=== PATIENT | female | born 1965 | race African-American/Black ===

== ENCOUNTER → 2016-12-09 | Outpatient (CLI) | payer BC ==
[2016-06-26 15:03] VITALS: BP 177/69
[2016-12-09 16:15] LABS: BASOPHILS # (AUTO) 0.1 X10^3/uL (0.0-0.1); EOSINOPHILS # (AUTO) 0.1 x10^3/uL (0.0-0.2); EOSINOPHILS % (AUTO) 1.7 % (0.9-2.9); HEMATOCRIT 37.7 % (36.0-47.0); HEMOGLOBIN 11.9 g/dL (12.0-16.0); LYMPHOCYTES # (AUTO) 2.9 X10^3/uL (1.3-2.9); LYMPHOCYTES % (AUTO) 46.9 % (21.0-51.0); MEAN CORPUSCULAR HEMOGLOBIN 23.9 pg (27.0-34.0); MEAN CORPUSCULAR HGB CONC 31.6 g/dL (33.0-35.0); MEAN CORPUSCULAR VOLUME 75.6 fL (80.0-100.0); MEAN PLATELET VOLUME 9.5 fL (7.4-11.0); MONOCYTES # (AUTO) 0.7 x10^3/uL (0.3-0.8); MONOCYTES % (AUTO) 10.8 % (0.0-13.0); NEUTROPHILS # (AUTO) 2.5 x10^3/uL (2.2-4.8); NEUTROPHILS % (AUTO) 39.6 % (42.0-75.0); PLATELET COUNT 218 X10^3/uL (150.0-450.0); RED BLOOD COUNT 4.99 X10^6/uL (3.5-5.4); RED CELL DISTRIBUTION WIDTH 16.2 % (11.6-16.5); WHITE BLOOD COUNT 6.2 X10^3/uL (3.6-10.0)
[2016-12-09 16:22] LABS: HEMOGLOBIN A1C 11.2 % (4.5-6.2)
[2016-12-09 16:31] LABS: ALANINE AMINOTRANSFERASE 34 Units/L (12-78); ALBUMIN 3.3 g/dL (3.4-5.0); ALKALINE PHOSPHATASE 120 Units/L (46-116); ASPARTATE AMINO TRANSFERASE 28 Units/L (15-37); BLOOD UREA NITROGEN 10 mg/dL (7-18); CALCIUM 8.8 mg/dL (8.5-10.1); CARBON DIOXIDE 29.3 mmol/L (21-32); CHLORIDE 106 mmol/L (98-107); CHOL/HDL RATIO 4.3 (0.0-5.0); CHOLESTEROL 164 mg/dL (0-200); COR CA(FOR HYPOALB) 9.4 mg/dL (8.5-10.1); CREATININE 0.67 mg/dL (0.55-1.02); GLUCOSE 89 mg/dL (65-99); HDL CHOLESTEROL 38 mg/dL (40-60); SODIUM 143 mmol/L (136-145); TRIGLYCERIDES 25 mg/dL (0-150); eGFR BLACK RACES > 60 (>60); eGFR NON BLACK RACES > 60 (>60)
[2016-12-09 16:50] LABS: CREATININE,URINE 297.72 mg/dL (29-226)
[2016-12-09 17:05] LABS: ERYTHROCYTE SEDIMENTATION RATE 34 MM/HOUR (0-20); HYPOCHROMASIA 1+; PLATELET MORPHOLOGY COMMENT NORMAL (NORMAL)
[2016-12-09 17:11] LABS: MICROALBUMIN,URINE 202.4 mg/L
[2016-12-09 17:24] LABS: TRANSFERRIN 313 mg/dL (202-364)
[2016-12-12 06:16] LABS: ANTI-NUCLEAR ANTIBODY TEST None Detected (None Detected)
== END ==
LOC: LAB 15:40
PROVIDERS: ATTEND Nurse Practitioner Family
DX: Z86.2 Personal history of diseases of the blood and blood-forming organs and certain disorders involving the immune mechanism (principal); R76.8 Other specified abnormal immunological findings in serum; I10 Essential (primary) hypertension; E11.65 Type 2 diabetes mellitus with hyperglycemia
CPT/HCPCS: 36415; 80053; 80061; 82043; 82607; 82728; 82746; 83036; 84466; 85025; 85652; 86140; 86308

== ENCOUNTER → 2016-12-10 | Outpatient (CLI) | payer BC ==
[2016-06-26 15:03] VITALS: BP 177/69
--- NOTE | 2016-12-10 12:07 | RAD ---
HISTORY: Low back pain Study: Lumbar spine three view Comparison: June 26, 2016 Findings: Normal alignment of the lumbar spine is maintained. The posterior elements appear unremarkable in t heir appearance. The disk space height is maintained without significant endplate sclerosis. No ev idence for acute fracture can be identified. The SI joints are normal. IMPRESSION: 1. Negative exam. Reported By:
--- NOTE | 2016-12-10 12:08 | RAD ---
HISTORY: Chronic back pain Study: T-spine three view Comparison: None Findings: The alignment is normal. The vertebral bodies are of average height. The disc spaces are preserved. The pedicles are intact. The paraspinous soft tissues are normal. Diffuse spondylosis is present in the mid and lower thoracic spine. IMPRESSION: Diffuse spondylosis Reported By:
--- NOTE | 2016-12-10 12:09 | RAD ---
HISTORY: Chronic neck pain Study: Cervical spine three views Comparison: November 22, 2014 Findings: The prevertebral soft tissues are normal. The alignment is normal. The vertebral bodies are of avera ge height. The disc spaces are normal with the exception of narrowing at C5-6. The posterior element s are intact. The joints are normal. IMPRESSION: Disc space narrowing C5-6 Reported By:
== END | disposition home or self-care (01) | DRG 552 ==
LOC: LAB 11:15
PROVIDERS: ATTEND Psychiatry & Neurology Neurology
DX: M54.2 Cervicalgia (principal); M54.89 Other dorsalgia; M47.894 Other spondylosis, thoracic region
CPT/HCPCS: 72040; 72072; 72100

== ENCOUNTER → 2017-04-04 | Outpatient (CLI) | payer BC ==
[2016-06-26 15:03] VITALS: BP 177/69
--- NOTE | 2017-04-04 13:26 | US ---
History: Dyspareunia. Exam: Pelvic ultrasound Comparison: Pelvic ultrasound dated February 14, 2012. Technique: Multiple grayscale and color flow Doppler images of the pelvis were obtained. Findings: The uterus measures 5.9 x 4.2 x 5.4 cm. Partially pedunculated anterior fundal fibroid measuring 3. 5 x 3.3 x 2.4 cm. Previously seen posterior/anterior myometrial fibroid is not appreciated on today' s exam. The endometrial stripe is not well seen. The right and left adnexa are unremarkable. The e chotexture of the right and left ovaries are unremarkable. The right and left ovaries are normal in size. The right ovary measures 3.4 x 1.5 x 3.4 cm. The left ovary measures 2.2 x 1.6 x 2.5 cm. No adnexal mass or free fluid can be identified. IMPRESSION: 1. Fibroid uterus as above. 2. The endometrial stripe was not well seen. Reported By:
== END ==
LOC: RAD 10:35
PROVIDERS: ATTEND Nurse Practitioner Family
DX: N94.19 Other specified dyspareunia (principal)
CPT/HCPCS: 76856

== ENCOUNTER → 2017-04-27 | Outpatient (CLI) | payer BC ==
[2016-06-26 15:03] VITALS: BP 177/69
[2017-04-27 11:35] LABS: BASOPHILS % (AUTO) 1.1 % (0.2-1.0); EOSINOPHILS # (AUTO) 0.1 x10^3/uL (0.0-0.2); EOSINOPHILS % (AUTO) 2.1 % (0.9-2.9); HEMATOCRIT 38.2 % (36.0-47.0); HEMOGLOBIN 12.3 g/dL (12.0-16.0); LYMPHOCYTES # (AUTO) 1.2 X10^3/uL (1.3-2.9); LYMPHOCYTES % (AUTO) 37.5 % (21.0-51.0); MEAN CORPUSCULAR HEMOGLOBIN 25.7 pg (27.0-34.0); MEAN CORPUSCULAR HGB CONC 32.3 g/dL (33.0-35.0); MEAN CORPUSCULAR VOLUME 79.4 fL (80.0-100.0); MEAN PLATELET VOLUME 9.2 fL (7.4-11.0); MONOCYTES # (AUTO) 0.7 x10^3/uL (0.3-0.8); MONOCYTES % (AUTO) 22.5 % (0.0-13.0); NEUTROPHILS # (AUTO) 1.2 x10^3/uL (2.2-4.8); NEUTROPHILS % (AUTO) 36.8 % (42.0-75.0); PLATELET COUNT 179 X10^3/uL (150.0-450.0); RED CELL DISTRIBUTION WIDTH 16.1 % (11.6-16.5); WHITE BLOOD COUNT 3.2 X10^3/uL (3.6-10.0)
[2017-04-27 11:57] LABS: ALANINE AMINOTRANSFERASE 32 Units/L (12-78); ALBUMIN 3.1 g/dL (3.4-5.0); ALKALINE PHOSPHATASE 140 Units/L (46-116); ASPARTATE AMINO TRANSFERASE 19 Units/L (15-37); BLOOD UREA NITROGEN 13 mg/dL (7-18); CALCIUM 8.4 mg/dL (8.5-10.1); CARBON DIOXIDE 32.2 mmol/L (21-32); CHLORIDE 103 mmol/L (98-107); CHOL/HDL RATIO 4.4 (0.0-5.0); CHOLESTEROL 173 mg/dL (0-200); COR CA(FOR HYPOALB) 9.1 mg/dL (8.5-10.1); COR NA(FOR HYPERGLY) 140 mmol/L (136-145); CREATININE 0.73 mg/dL (0.55-1.02); GLUCOSE 151 mg/dL (65-99); HDL CHOLESTEROL 39 mg/dL (40-60); SODIUM 139 mmol/L (136-145); TRIGLYCERIDES 39 mg/dL (0-150); eGFR BLACK RACES > 60 (>60); eGFR NON BLACK RACES > 60 (>60)
[2017-04-27 12:09] LABS: BAND NEUTROPHILS % 4 % (0-10); PLATELET MORPHOLOGY COMMENT NORMAL (NORMAL)
[2017-04-27 12:18] LABS: HEMOGLOBIN A1C 11.9 % (4.5-6.2)
[2017-04-27 12:40] LABS: ERYTHROCYTE SEDIMENTATION RATE 32 MM/HOUR (0-20)
[2017-04-27 14:31] LABS: CREATININE,URINE 115.19 mg/dL (29-226); MICROALBUMIN,URINE 153.9 mg/L
== END ==
LOC: LAB 11:03
PROVIDERS: ATTEND Nurse Practitioner Family
DX: I10 Essential (primary) hypertension (principal); E11.69 Type 2 diabetes mellitus with other specified complication; E55.9 Vitamin D deficiency, unspecified; R76.8 Other specified abnormal immunological findings in serum
CPT/HCPCS: 36415; 80053; 80061; 82043; 82306; 82652; 83036; 85025; 85652; 86140

== ENCOUNTER → 2017-05-03 | Outpatient (CLI) | payer BC ==
[2016-06-26 15:03] VITALS: BP 177/69
--- NOTE | 2017-05-03 11:07 | RAD ---
HISTORY: Bilateral hip pain, nontraumatic Study: Right hip two views, AP pelvis Comparison: None Findings: A single frontal view of the pelvis demonstrates the pelvic ring to be intact. No evidence for acut e cortical disruption or dislocation of the hip can be observed. Frog leg views of the hip fails to demonstrate evidence for fracture or significant joint abnormality. Impression: 1. Negative exam. HISTORY: Bilateral hip pain, nontraumatic Study: Left hip two views, AP pelvis Comparison: None Findings: A single frontal view of the pelvis demonstrates the pelvic ring to be intact. No evidence for acut e cortical disruption or dislocation of the hip can be observed. Frog leg views of the hip fails to demonstrate evidence for fracture or significant joint abnormality. Impression: 1. Negative exam. Reported By:
--- NOTE | 2017-05-03 11:17 | RAD ---
The three views of the left shoulder. Indication: Left shoulder pain. Findings: There is irregularity within distal acromion suspect represent an os acromiale and potenti ally source of patient's left shoulder pain. Correlation for point tenderness in this location is re commended. There is hydroxyapatite deposition noted within the distal rotator cuff seen on internal rotation view. No acute fracture or dislocation within the glenohumeral joint. No displaced left-ike ed rib fracture. Impression: 1.Cortical irregularity within distal left acromion with degenerative changes at the AC joint suspic ious for an os acromiale with chronic inflammation at pseudarthrosis. Correlation for point tenderne ss in this location is recommended. 2. Hydroxyapatite deposition within the distal rotator cuff may also represent an additonal source o f left shoulder pain and clinical correlation is needed. 3. No acute fracture or malalignment of the left glenohumeral joint. Reported By:
--- NOTE | 2017-05-03 11:20 | RAD ---
PA and lateral Chest Indication: Back pain Comparison: None available Findings: The trachea is midline. The cardiac silhouette is at the upper limits of normal. Previous median st ernotomy is noted. The tiny round calcified granulomas are noted within the periphery of the left an d right mid lungs. The lungs are clear without focal infiltrate or effusion. The bony thorax is unr emarkable. IMPRESSION: 1. No acute cardiopulmonary abnormality. Reported By:
--- NOTE | 2017-05-03 11:21 | RAD ---
Three views of the thoracic spine. Indication: Back pain Findings: The swimmer's view is suboptimal and visualization of the cervicothoracic junction is limi zion. The mid and lower thoracic spine demonstrates multilevel spondylosis without acute fracture or spondylolisthesis. Impression: Inability to visualize the cervicothoracic junction on the swimmer's view, the visualize d mid and lower thoracic spine demonstrates multilevel spondylosis without acute fracture or spondyl olisthesis. Reported By:
--- NOTE | 2017-05-03 11:23 | RAD ---
Three views of the lumbar spine Indication: Lower back pain Findings: There is no significant spondylosis within the lumbar spine. No fracture or spondylolisthe sis. There appears to be mild facet arthropathy at L3-4 and L5-S1. SI joints are intact. Prior yanet cystectomy is noted. Impression: Mild facet arthropathy within the lower lumbar spine without significant spondylosis. No acute fracture, spondylolisthesis or spondylolysis within the lumbar spine. Reported By:
== END | disposition home or self-care (01) | DRG 556 ==
LOC: RAD 10:11
PROVIDERS: ATTEND Nurse Practitioner Family
DX: M25.512 Pain in left shoulder (principal); M54.6 Pain in thoracic spine; M54.5 Low back pain; M25.552 Pain in left hip; R07.89 Other chest pain; M12.88 Other specific arthropathies, not elsewhere classified, other specified site
CPT/HCPCS: 71020; 72072; 72100; 73030; 73521

== ENCOUNTER → 2017-07-01 | Outpatient (CLI) | payer BC ==
[2016-06-26 15:03] VITALS: BP 177/69
--- NOTE | 2017-07-03 16:38 | RAD ---
HISTORY: Right upper quadrant pain Study: Frontal view of the chest, flat and upright views of the abdomen Comparison: None. Findings: Cardiomediastinal silhouette is normal in size. No focal consolidations, pleural effusions or pneumot horax. Osseous structures are without acute abnormality. Flat and upright views of the abdomen demonstrates a normal bowel gas pattern. No free air. No abnor mal calcifications or abnormal soft tissue shadows. No acute bony abnormalities. IMPRESSION: 1. No acute cardiopulmonary disease. 2. No evidence for acute abdominal pathology. Reported By:
== END ==
LOC: RAD 12:09
PROVIDERS: ATTEND Nurse Practitioner Family
DX: R10.84 Generalized abdominal pain (principal)
CPT/HCPCS: 74022

== ENCOUNTER → 2017-07-11 | Outpatient (CLI) | payer BC ==
[2016-06-26 15:03] VITALS: BP 177/69
--- NOTE | 2017-07-15 10:28 | MG ---
HISTORY: SCREENING Comparison: 06/04/16 FINDINGS: CC and MLO projections of the right and left breast were obtained. Scattered fibroglandular tissue i s present. No significant architectural distortion, mass or clustered microcalcifications can be obs erved to suggest malignancy. No skin thickening or nipple retraction is appreciated. No pathologic al lymphadenopathy can be identified. There are benign calcifications seen in both breasts. IMPRESSION: NO RADIOGRAPHIC EVIDENCE OF MALIGNANCY. ACR CATEGORY 2: Benign findings. FOLLOW-UP EXAM 1 YEAR. * 0 (ZERO) - ASSESSMENT INCOMPLETE; ADDITIONAL IMAGING IS NEEDED. * 1/1 (ONE) - NEGATIVE. * 2/II (TWO) - BENIGN FINDINGS. * 3/III (THREE) - PROBABLY BENIGN FINDING; SHORT INTERVAL FOLLOW-UP SUGGESTED. * 4/IV (FOUR) - SUSPICIOUS ABNORMALITY; BIOPSY SHOULD BE CONSIDERED. * 5/V - HIGHLY SUSPICIOUS OF MALIGNANCY; BIOPSY SHOULD BE PERFORMED. A NEGATIVE X-RAY REPORT SHOULD NOT DELAY BIOPSY IF A DOMINANT OR CLINICALLY SUSPICIOUS MASS IS PRESENT; 4 TO 8 PERCENT OF CANCERS ARE NOT IDENTIFIED BY X-RAY. A NEGA TIVE REPORT MAY REINFORCE THE CLINICAL IMPRESSION. ADENOSIS AND DENSE BREASTS MAY OBSCURE AN UNDERLY ING NEOPLASM. Reported By:
== END ==
LOC: RAD 08:10
PROVIDERS: ATTEND Orthopaedic Surgery
DX: Z12.31 Encounter for screening mammogram for malignant neoplasm of breast (principal)
CPT/HCPCS: 77067

== ENCOUNTER 2017-07-19 19:47 | Emergency (ER) | payer BC ==
[2017-07-19 19:56] VITALS: BP 191/98; BMI 41.2
--- NOTE | 2017-07-20 00:21 | DR.GENAD ---
HPI - PCP Primary Care Physician: dorothea - HPI Comment HPI Comment: cough for past several days. - Complaint/Symptoms Chief Complaint:: c/o cough, chest hurting due to cough, no fever, congestion, green nasal discharge. Patient reports no treatment at home. - Nurses notes reviewed Nurses Notes Review: Yes - Source History Provided: Patient - Mode of Arrival Mode of Arrival: Ambulatory - Timing Onset of Chief Complaint: 07/12/17 - Severity Severity: Moderate - Modifying Factors Worsens:: nothing Improves:: nothing - Associated Signs and Symptoms Associated Signs and Symptoms: none PMH - PMH Past Medical History: Yes Past Medical History: Coronary Artery Disease, Diabetes, GERD, Hypertension Past Medical History Comment: CABG Past Surgical History: Yes Surgical History: , CABG/Valve Surgery, Cholecystectomy - Family History History of Family Medical Conditions: Yes Family Medical History: Diabetes Mellitus, Cancer, Heart Failure, Hypertension - Social History Does patient currently use any type of tobacco product: No Type of Tobacco Use: None Does any household member use tobacco: No Alcohol Use: None Do you use any recreational Drugs:: No Lives With: Family Lives Where: Home - infectious screening In the last 2 months have you had wt loss of >10#?: NO Have you had fever, night sweats or hemotysis?: No Have you traveled outside the country in the last 6 months?: No Isolation: Standard ROS - Review of Systems Eyes: No Symptoms Reported ENTM: No Symptoms Reported Respiratoy: Non-Productive Cough Cardiovascular: Other (pleuritic chest pain) Gastrointestinal/Abdominal: No Symptoms Reported Genitourinary: No Symptoms Reported Neurological: No Symptoms Reported Musculoskeletal: No Symptoms Reported Integumentary: No Symptoms Reported Hematologic/Lymphatic: No Symptoms Reported Endocrine: No Symptoms Reported Psychiatric: No Symptoms Reported All Other Systems: Reviewed and Negative PE - Vital Signs Vitals: Temperature 98.5 F Pulse Rate 98 Respiratory Rate 20 Blood Pressure 191/98 O2 Sat by Pulse Oximetry 71 - General Limitations: No Limitations General Appearance: Alert, In No Apparent Distress - Head Head Exam: Normal Inspection - Eyes Eye exam: Normal Appearance, PERRL, Scleral Icterus - ENT ENT Exam: Normal Exam External Ear Exam: Normal External Inspection TM/Canal Exam: Bilateral Normal Nose Exam: Normal Nose Exam Mouth Exam: Normal Inspection Throat Exam: Normal Inspection - Neck Neck Exam: Normal Inspection - Chest Chest Inspection: Normal Inspection - Respiratory Respiratory Exam: Normal Lung Sounds Bilat Respiratory Exam: Bilateral Clear to Auscultation - Cardiovascular Cardiovascular Exam: Regular Rate, Normal Rhythm - Abdominal Exam Abdominal Exam: Normal Inspection, Normal Bowel Sounds, Soft - Extremities Extremities Exam: Normal Inspection - Back Back Exam: Normal Inspection - Neurologic Neurological Exam: Alert, Oriented X3, CN II-XII Intact - Psychiatric Psychiatric Exam: Normal Affect Course - Reevaluation 1st: Unchanged - Education/Counseling Education/Counseling: Patient Educated On: Treatment, Diagnosis, Needs for Follow Up ROR - XRAY XRAY Interpreted by: Radiologist (CXR: NAD) - Diagnosis Discharge Problem: Cough - Discharge Plan Disposition: 01 HOME, SELF-CARE Condition: Stable - Follow ups/Referrals Follow ups/Referrals: JANICE MESA [Primary Care Provider] - 3 days - Instructions
--- NOTE | 2017-07-20 00:48 | RAD ---
EXAM: Chest X-ray INDICATION: Cough COMPARISION: Prior exam from 05/03/2017 TECHNIQUE: PA and Lat, 2 view FINDINGS: The lungs are clear and the lung volumes are within normal limits. No pleural effusion or pneumothora x. The cardiac silhouette and mediastinum are normal. The regional skeleton is intact. IMPRESSION: Normal Chest X-Ray Reported By:
== END 2017-07-20 01:49 | disposition home or self-care (01) ==
LOC: ER 19:47
DX: R05 Cough (principal)
CPT/HCPCS: 71020; 99282

== ENCOUNTER → 2017-07-25 | Outpatient (CLI) | payer BC ==
[2017-07-19 19:56] VITALS: BP 191/98
[2017-07-25 10:48] LABS: BILIRUBIN,URINE NEGATIVE (NEGATIVE); BLOOD/HEMOGLOBIN,URINE 1+ (NEGATIVE); GLUCOSE, URINE 4+ (NEGATIVE); KETONES,URINE NEGATIVE (NEGATIVE); LEUKOCYTE ESTERASE ,URINE NEGATIVE (NEGATIVE); NITRITES,URINE NEGATIVE (NEGATIVE); PROTEIN,URINE 2+ (NEGATIVE); UROBILINOGEN,URINE NORMAL (NORMAL)
[2017-07-25 10:49] LABS: BASOPHILS % (AUTO) 0.6 % (0.2-1.0); EOSINOPHILS # (AUTO) 0.2 x10^3/uL (0.0-0.2); EOSINOPHILS % (AUTO) 2.9 % (0.9-2.9); HEMATOCRIT 43.8 % (36.0-47.0); HEMOGLOBIN 14.2 g/dL (12.0-16.0); LYMPHOCYTES % (AUTO) 38.9 % (21.0-51.0); MEAN CORPUSCULAR HEMOGLOBIN 25.8 pg (27.0-34.0); MEAN CORPUSCULAR HGB CONC 32.3 g/dL (33.0-35.0); MEAN CORPUSCULAR VOLUME 79.6 fL (80.0-100.0); MEAN PLATELET VOLUME 9.6 fL (7.4-11.0); MONOCYTES # (AUTO) 0.5 x10^3/uL (0.3-0.8); MONOCYTES % (AUTO) 8.8 % (0.0-13.0); NEUTROPHILS # (AUTO) 2.5 x10^3/uL (2.2-4.8); NEUTROPHILS % (AUTO) 48.8 % (42.0-75.0); PLATELET COUNT 189 X10^3/uL (150.0-450.0); WHITE BLOOD COUNT 5.2 X10^3/uL (3.6-10.0)
[2017-07-25 10:53] LABS: MICROALBUM/CREATININE RATIO,UR 95 mg/g cre (0-29); MICROALBUMIN,URINE 81.2 mg/L
[2017-07-25 10:54] LABS: ALANINE AMINOTRANSFERASE 28 Units/L (12-78); ALBUMIN 3.4 g/dL (3.4-5.0); ALKALINE PHOSPHATASE 145 Units/L (46-116); ASPARTATE AMINO TRANSFERASE 19 Units/L (15-37); BLOOD UREA NITROGEN 12 mg/dL (7-18); CARBON DIOXIDE 28.4 mmol/L (21-32); CHLORIDE 99 mmol/L (98-107); COR NA(FOR HYPERGLY) 139 mmol/L (136-145); CREATININE 0.76 mg/dL (0.55-1.02); SODIUM 134 mmol/L (136-145); TOTAL PROTEIN 8.3 g/dL (6.4-8.2); eGFR BLACK RACES > 60 (>60); eGFR NON BLACK RACES > 60 (>60)
[2017-07-25 11:09] LABS: APPEARANCE,URINE CLEAR (CLEAR); BACTERIA,URINE NEGATIVE /HPF (NEGATIVE); COLOR,URINE YELLOW (YELLOW); RBC,URINE RARE /HPF (NEGATIVE); SQUAMOUS EPITHELIAL CELL,UR RARE /HPF (NEGATIVE)
[2017-07-25 11:26] LABS: PLATELET MORPHOLOGY COMMENT NORMAL (NORMAL)
== END ==
LOC: LAB 10:05
PROVIDERS: ATTEND Nurse Practitioner Family
DX: R30.0 Dysuria (principal); E11.9 Type 2 diabetes mellitus without complications; E55.9 Vitamin D deficiency, unspecified
CPT/HCPCS: 36415; 80053; 81001; 82043; 82306; 83036; 85025

== ENCOUNTER 2017-08-12 07:23 | Day surgery (SDC) | payer BC ==
[2017-08-12] MEDS ORDERED: ALCAINE or OPHTHETIC 1 DOSE LEFTEYE ONE (07:58)
[2017-08-12] MEDS ORDERED: MYDRIACIL OPHTH 1 DOSE AFFEYE ONE (07:59)
[2017-08-12] MEDS ORDERED: AK-DILATE 2.5% OPHTH 1 DOSE OP ONE (08:01)
[2017-08-12] MEDS ORDERED: TETRACAINE 0.5% OPHTH 1 DOSE AFFEYE ONE (09:19)
[2017-08-12 12:30] VITALS: BP 156/92
== END 2017-08-12 09:40 | disposition home or self-care (01) ==
LOC: SURG1 07:23
PROVIDERS: ATTEND Ophthalmology
PROC: 085F3ZZ Destruction of Left Retina, Percutaneous Approach (ICD-10-PCS; principal; 2017-08-12 10:15)
DX: E11.319 Type 2 diabetes mellitus with unspecified diabetic retinopathy without macular edema (principal)

== ENCOUNTER 2017-10-15 16:39 | Emergency (ER) | payer BC ==
[2017-10-15 16:51] VITALS: BP 145/71; BMI 44.2
[2017-10-15] MEDS ORDERED: TORADOL 60 MG VIAL IM ONE (17:54)
--- NOTE | 2017-10-15 17:54 | DR.URIAD ---
HPI - Time Seen Time seen: 17:45 - PCP Primary Care Physician: MAURICIO CAMPUZANO - HPI Comment HPI Comment: WORSE TODAY. PATIENT COUGHING, PRODUCTIVE, YELLOW SPUTUN. DENIES CHEST PAIN. - Complaint Chief Complaint Doctors Comments: COUGH, COLD, CONGESTION, FEVER, SORETHROAT AND HEADACHE TIMES THREE DAY. Chief Complaint:: PT C/O CCC, LEROY, DIARRHEA AND BODYACHES SINCE SATURDAY.. Self Treatment fo Chief Complaint: TYLENOL - Reviewed Nurses Notes Reviewed: Yes - Source History Provided: Patient - Mode of Arrival Mode of Arrival: Ambulatory - Timing Onset of Chief Complaint: 10/13/17 - Context Recent Treated Infections: None History of Respiratory: None - Quality Quality of Cough: None Shortness of Breath: none - Associated Signs and Symptoms Other Signs and Symptoms: Cough, Myalgias, Sore Throat, URI, Wheeze PMH - PMH Past Medical History: Yes Past Medical History: Coronary Artery Disease, Diabetes, GERD, Hypertension Past Surgical History: Yes Surgical History: , CABG/Valve Surgery, Cholecystectomy - Family History History of Family Medical Conditions: Yes Family Medical History: Diabetes Mellitus, Cancer, Heart Failure, Hypertension - Social History Does patient currently use any type of tobacco product: No Have you used tobacco products in the last 12 months: No Type of Tobacco Use: None Does any household member use tobacco: No Alcohol Use: None Do you use any recreational Drugs:: No Lives With: Family Lives Where: Home - infectious screening In the last 2 months have you had wt loss of >10#?: NO Have you had fever, night sweats or hemotysis?: No Have you traveled outside the country in the last 6 months?: No Isolation: Airborn/Negative Pressure ROS - Review of Systems Constitutional: Weakness, Fatigue. negative: Chills, Fever Eyes: negative: Eye Pain, Discharge ENTM: Nose Discharge, Nose Congestion, Throat Pain. negative: Ear Pain Respiratoy: Productive Cough. negative: Short of Breath, Stridor, Wheezing Cardiovascular: No Symptoms Reported Gastrointestinal/Abdominal: No Symptoms Reported Genitourinary: No Symptoms Reported Neurological: Headache, Dizziness Musculoskeletal: Muscle Pain Integumentary: No Symptoms Reported Hematologic/Lymphatic: No Symptoms Reported Endocrine: No Symptoms Reported All Other Systems: Reviewed and Negative PE - Vital Signs Vitals: Temperature 97.7 F Pulse Rate 80 Respiratory Rate 18 Blood Pressure 145/71 O2 Sat by Pulse Oximetry 97 - General Limitations: No Limitations General Appearance: Alert - Head Head Exam: Normal Inspection - Eyes Eye exam: Normal Appearance - ENT ENT Exam: negative: Normal Oropharynx (THROAT INFLAME.), TM's Normal Bilaterally (TM BULGING.) External Ear Exam: Normal External Inspection TM/Canal Exam: Bilateral Bulging Nose Exam: Sinus Tenderness Mouth Exam: Normal Inspection Throat Exam: Tonsillar Erythema, Tonsillomegaly. negative: Tonsillar Exudate - Neck Neck Exam: Trachea Midline - Chest Chest Inspection: Symmetric Chest Wall Rise - Respiratory Respiratory Exam: Normal Lung Sounds Bilat Respiratory Exam: Bilateral Rhonchi, Lower Rhonchi - Cardiovascular Cardiovascular Exam: Regular Rate, Normal Rhythm, Normal Heart Sounds - Abdominal Exam Abdominal Exam: Normal Bowel Sounds, Soft. negative: Tenderness - Extremeties Extremities Exam: Normal Inspection - Back Back Exam: Normal Inspection - Neurologic Neurological Exam: Alert, Oriented X3 - Psychiatric Psychiatric Exam: Normal Affect, Normal Mood - Skin Skin Exam: Normal Color MDM - Additional Information Additional Information Obtained From: Family - Differential Diagnosis Differential Diagnosis: Influenza A, Otitis media, Streptococcal pharyngitis, Viral pharyngitis, Pneumonia, Sinsusitis, URI Course - Treatment Treatment: SEE ORDERS. IM TORADOL IN ED. - Reevaluation 1st: Improved - Education/Counseling Education/Counseling: Patient, Family, Education Educated On: Treatment, Diagnosis, Needs for Follow Up ROR - Labs Reviewed Laboratory Results Reviewed?: Yes Laboratory: Influenza Type A (PCR) Negative (NEGATIVE) 10/15/17 17:45 Influenza Type B (PCR) Positive (NEGATIVE) A 10/15/17 17:45 Streptococcus Screen Negative (NEGATIVE) 10/15/17 17:45 - Diagnosis Discharge Problem: Influenza, Sinusitis, Bronchitis - Discharge Plan Disposition: HOME, SELF-CARE Condition: Stable Prescriptions: Amoxicillin [Amoxil 875 mg] 875 mg PO TID #30 tab Cetirizine HCl [Zyrtec Tab 10 mg] 10 mg PO DAILY #30 tab Oseltamivir Phosphate [Tamiflu] 75 mg PO BID #10 cap - Follow ups/Referrals Follow ups/Referrals: NFD,None [Primary Care Provider] - 3 days - Instructions Instructions: Influenza, Adult, [id number], Sinusitis, Adult, [id number], Acute Bronchitis, [id number] Additional Instructions: RETURN TO ED IF WORSE.
[2017-10-15] MEDS ORDERED: TORADOL 60 MG VIAL ONE (18:21)
== END 2017-10-15 18:41 | disposition home or self-care (01) ==
LOC: ER 16:54
DX: J11.1 Influenza due to unidentified influenza virus with other respiratory manifestations (principal); J32.9 Chronic sinusitis, unspecified; J40 Bronchitis, not specified as acute or chronic
CPT/HCPCS: 87070; 87502; 87880; 96372; 99282; 99284; J1885

== ENCOUNTER → 2017-11-21 | Outpatient (CLI) | payer BC ==
[2017-11-21 13:43] LABS: BASOPHILS % (AUTO) 0.8 % (0.2-1.0); EOSINOPHILS # (AUTO) 0.2 x10^3/uL (0.0-0.2); HEMATOCRIT 44.2 % (36.0-47.0); HEMOGLOBIN 14.8 g/dL (12.0-16.0); LYMPHOCYTES # (AUTO) 2.1 X10^3/uL (1.3-2.9); LYMPHOCYTES % (AUTO) 37.7 % (21.0-51.0); MEAN CORPUSCULAR HEMOGLOBIN 26.6 pg (27.0-34.0); MEAN CORPUSCULAR HGB CONC 33.4 g/dL (33.0-35.0); MEAN CORPUSCULAR VOLUME 79.6 fL (80.0-100.0); MEAN PLATELET VOLUME 9.4 fL (7.4-11.0); MONOCYTES # (AUTO) 0.5 x10^3/uL (0.3-0.8); MONOCYTES % (AUTO) 8.3 % (0.0-13.0); NEUTROPHILS # (AUTO) 2.8 x10^3/uL (2.2-4.8); NEUTROPHILS % (AUTO) 50.2 % (42.0-75.0); PLATELET COUNT 250 X10^3/uL (150.0-450.0); RED BLOOD COUNT 5.56 X10^6/uL (3.5-5.4); RED CELL DISTRIBUTION WIDTH 14.6 % (11.6-16.5); WHITE BLOOD COUNT 5.6 X10^3/uL (3.6-10.0)
[2017-11-21 14:02] LABS: ALANINE AMINOTRANSFERASE 27 Units/L (12-78); ALBUMIN 3.6 g/dL (3.4-5.0); ALKALINE PHOSPHATASE 149 Units/L (46-116); ASPARTATE AMINO TRANSFERASE 16 Units/L (15-37); BLOOD UREA NITROGEN 10 mg/dL (7-18); CALCIUM 9.4 mg/dL (8.5-10.1); CARBON DIOXIDE 33.2 mmol/L (21-32); CHLORIDE 100 mmol/L (98-107); CHOL/HDL RATIO 4.7 (0.0-5.0); CHOLESTEROL 239 mg/dL (0-200); COR NA(FOR HYPERGLY) 140 mmol/L (136-145); CREATININE 0.74 mg/dL (0.55-1.02); HDL CHOLESTEROL 51 mg/dL (40-60); SODIUM 139 mmol/L (136-145); TOTAL PROTEIN 9.2 g/dL (6.4-8.2); TRIGLYCERIDES 46 mg/dL (0-150); eGFR BLACK RACES > 60 (>60); eGFR NON BLACK RACES > 60 (>60)
[2017-11-21 14:04] LABS: CREATININE,URINE 209.66 mg/dL (29-226)
[2017-11-21 14:07] LABS: MICROALBUMIN,URINE 112.3 mg/L
[2017-11-21 14:14] LABS: RHEUMATOID FACTOR NEGATIVE (NEGATIVE)
[2017-11-21 14:16] LABS: ERYTHROCYTE SEDIMENTATION RATE 43 MM/HOUR (0-20)
--- NOTE | 2017-11-21 16:19 | RAD ---
HISTORY: Wrist pain Study: 3 views of the right wrist. Comparison: None Findings: No acute fractures or dislocations. The carpal bones appear well aligned. The visualized portions of the distal radius and ulna are unremarkable. No significant soft tissue abnormality. IMPRESSION: 1. No acute abnormalities of the right wrist. Reported By:
--- NOTE | 2017-11-21 16:20 | RAD ---
HISTORY: Hand pain Study: 3 views of the right hand. Comparison: None Findings: No acute fractures or dislocations. The carpal bones appear well aligned. The visualized portions of the distal radius and ulna are unremarkable. Joint spaces of the finger are maintained. No signific ant soft tissue abnormality. IMPRESSION: 1. No acute abnormalities of the right hand. Reported By:
--- NOTE | 2017-11-21 16:21 | RAD ---
HISTORY: Bilateral hand pain Study: 3 views of the right/left hand. Comparison: None Findings: No acute fractures or dislocations. The carpal bones appear well aligned. The visualized portions of the distal radius and ulna are unremarkable. Joint spaces of the finger are maintained. No signific ant soft tissue abnormality. IMPRESSION: 1. No acute abnormalities of the left hand. Reported By:
--- NOTE | 2017-11-21 16:22 | RAD ---
HISTORY: Wrist pain Study: 3 views of the left wrist. Comparison: None Findings: No acute fractures or dislocations. The carpal bones appear well aligned. The visualized portions of the distal radius and ulna are unremarkable. No significant soft tissue abnormality. IMPRESSION: 1. No acute abnormalities of the left wrist. Reported By:
[2017-11-25 06:33] LABS: ANTI-NUCLEAR ANTIBODY TEST None Detected (None Detected)
== END ==
LOC: LAB 10:52
PROVIDERS: ATTEND Nurse Practitioner Family
DX: E11.9 Type 2 diabetes mellitus without complications (principal); M79.89 Other specified soft tissue disorders; M79.642 Pain in left hand; M79.641 Pain in right hand
CPT/HCPCS: 36415; 73100; 73130; 80053; 80061; 82043; 85025; 85652; 86140; 86200; 86308; 86430; 95911

== ENCOUNTER → 2018-01-16 | Outpatient (CLI) | payer BC ==
--- NOTE | 2018-01-16 14:21 | MG ---
HISTORY: Bilateral breast pain and previous right breast lump which has resolved Bilateral digital diagnostic mammography with CAD and bilateral breast ultrasound. Comparison: Multiple priors dating back to May 23, 2015 FINDINGS: Mammogram: Bilateral CC and MLO projections of the right and left breast were obtained. Scattered fi broglandular tissue is seen to be present without significant interval change. No suspicious archite ctural distortion, mass or clustered microcalcifications can be observed to suggest malignancy. No s kin thickening or nipple retraction is appreciated. No pathological lymphadenopathy can be identifi ed. Benign-appearing calcifications are noted within the right and left breast. There are findings of fat necrosis and oil cyst formation bilaterally. Ultrasound: Multiple grayscale and color Doppler images were obtained in the regions of interest at 1 0 o'clock bilaterally. No suspicious cystic or solid nodules are identified. There are no focal fluid collections. There is no pathologic lymphadenopathy. IMPRESSION: NO RADIOGRAPHIC EVIDENCE OF MALIGNANCY. ACR CATEGORY 2 - benign findings. FOLLOW-UP EXAM 1 YEAR. Diagnostic CAD was utilized and reviewed. * 0 (ZERO) - ASSESSMENT INCOMPLETE; ADDITIONAL IMAGING IS NEEDED. * 1/1 (ONE) - NEGATIVE. * 2/II (TWO) - BENIGN FINDINGS. * 3/III (THREE) - PROBABLY BENIGN FINDING; SHORT INTERVAL FOLLOW-UP SUGGESTED. * 4/IV (FOUR) - SUSPICIOUS ABNORMALITY; BIOPSY SHOULD BE CONSIDERED. * 5/V - HIGHLY SUSPICIOUS OF MALIGNANCY; BIOPSY SHOULD BE PERFORMED. A NEGATIVE X-RAY REPORT SHOULD NOT DELAY BIOPSY IF A DOMINANT OR CLINICALLY SUSPICIOUS MASS IS PRESENT; 4 TO 8 PERCENT OF CANCERS ARE NOT IDENTIFIED BY X-RAY. A NEGA TIVE REPORT MAY REINFORCE THE CLINICAL IMPRESSION. ADENOSIS AND DENSE BREASTS MAY OBSCURE AN UNDERLY ING NEOPLASM. Reported By:
[2018-01-19 09:24] LABS: DEHYDROEPIANDROSTERONE SULFATE 32 ug/dL (26-200)
== END ==
LOC: RAD 07:50
PROVIDERS: ATTEND Nurse Practitioner Family
DX: N64.4 Mastodynia (principal); R23.2 Flushing
CPT/HCPCS: 36415; 76642; 77066; 82627; 82670; 84144; 84270; 84402; 84403

== ENCOUNTER 2019-05-04 10:30 | Observation (INO) ==
--- NOTE | 2019-05-04 11:24 | RAD ---
CHEST RADIOGRAPHS PA AND LATERAL VIEWS CLINICAL HISTORY: 53-year-old female with chest pain. COMPARISON: Chest radiographs 07/20/2017. FINDINGS: Surgical devices are unchanged. The cardiopericardial silhouette is stably enlarged. There is no focal consolidation, pleural effusion or pneumothorax. The lungs are well inflated. Pulmonary vascularity is normal. Imaged osseous structures are intact. Soft tissues are unremarkable. IMPRESSION: Chronic cardiomegaly without other acute cardiopulmonary process. Reported By:
[2019-05-04 11:32] LABS: BASOPHILS # (AUTO) 0.1 X10^3/uL (0.0-0.1); BASOPHILS % (AUTO) 0.9 % (0.2-1.0); EOSINOPHILS # (AUTO) 0.2 x10^3/uL (0.0-0.2); EOSINOPHILS % (AUTO) 2.1 % (0.9-2.9); HEMATOCRIT 37.7 % (36.0-47.0); HEMOGLOBIN 12.3 g/dL (12.0-16.0); LYMPHOCYTES # (AUTO) 2.6 X10^3/uL (1.3-2.9); LYMPHOCYTES % (AUTO) 36.3 % (21.0-51.0); MEAN CORPUSCULAR HEMOGLOBIN 26.5 pg (27.0-34.0); MEAN CORPUSCULAR HGB CONC 32.5 g/dL (33.0-35.0); MEAN CORPUSCULAR VOLUME 81.5 fL (80.0-100.0); MEAN PLATELET VOLUME 8.9 fL (7.4-11.0); MONOCYTES # (AUTO) 0.7 x10^3/uL (0.3-0.8); MONOCYTES % (AUTO) 9.5 % (0.0-13.0); NEUTROPHILS # (AUTO) 3.7 x10^3/uL (2.2-4.8); NEUTROPHILS % (AUTO) 51.2 % (42.0-75.0); PLATELET COUNT 219 X10^3/uL (150.0-450.0); RED BLOOD COUNT 4.63 X10^6/uL (3.5-5.4); WHITE BLOOD COUNT 7.2 X10^3/uL (3.6-10.0)
--- NOTE | 2019-05-04 11:36 | DR.EXTPAIN ---
HPI Time seen Time Seen by Provider: 05/04/19 11:01 PCP Primary Care Physician: MAURICIO STUART HPI Comment HPI Comment: 53 yo aaf w/ prev hx of CAD, CABG, htn, hld, DM presents with left shoulder pain x 3 days. Awoke from sleep 3 days ago with left shoulder pain, dull/ aching, radiating to the left hand, worse w/ movement of the LUE, no relieving factors, associated w/ generalized fatigue x 2 days. Denies CP, SOB, palpitations, syncope, n/v, abd pain, diaphoresis. No recent fall/ injury. No numbness/ weakness. Complaint/Symptoms Chief Complaint:: PT C/O CONSTANT DULL ACHING PAIN INTO LEFT SHOULDER THAT RADIATES DOWN ENTIRE LEFT ARM X 2 DAYS. DENIES INJURY TO ARM. PAIN IS WORSENED BY MOVEMENT AND BETTER WITH RESTING ARM BY SIDE. Nurses notes reviewed Nurses Notes Review: Yes Source History Provided: Patient Mode of arrival Mode of Arrival: Ambulatory Timing Onset of Chief Complaint: 05/02/19 PMH PMH Past Medical History: Yes Past Medical History: Coronary Artery Disease, Diabetes, GERD and Hypertension Past Surgical History: Yes Surgical History: Angioplasty/Stents, , CABG/Valve Surgery and Cholecystectomy Past Surgical History Comment: D&C X4, HERNIA REPAIR Family History History of Family Medical Conditions: Yes Family Medical History: Diabetes Mellitus and Cancer Social History Does patient currently use any type of tobacco product: No Have you used tobacco products in the last 12 months: No Type of Tobacco Use: None Does any household member use tobacco: No Alcohol Use: None Do you use any recreational Drugs:: No Lives With: Family Lives Where: Home infectious screening In the last 2 months have you had wt loss of >10#?: NO Have you had fever, night sweats or hemotysis?: No Have you traveled outside the country in the last 6 months?: No Isolation: Standard ROS Review of Systems Constitutional: No Symptoms Reported Eyes: No Symptoms Reported ENTM: No Symptoms Reported Respiratoy: No Symptoms Reported; negative Non-Productive Cough and Short of Breath Cardiovascular: No Symptoms Reported; negative Chest Pain (left arm pain ), Edema, Palpitations and Syncope Gastrointestinal/Abdominal: No Symptoms Reported Genitourinary: No Symptoms Reported Neurological: No Symptoms Reported Musculoskeletal: No Symptoms Reported Integumentary: No Symptoms Reported Hematologic/Lymphatic: No Symptoms Reported Endocrine: No Symptoms Reported Psychiatric: No Symptoms Reported All Other Systems: Reviewed and Negative PE Vital Signs Vitals: Temperature 98.3 F Pulse Rate [Left Radial] 59 Pulse Rate 63 Respiratory Rate 20 Blood Pressure [Left Arm] 122/58 Blood Pressure 141/67 O2 Sat by Pulse Oximetry 100 General Limitations: No Limitations General Appearance: Alert and In No Apparent Distress Head Head Exam: Normal Inspection Eyes Eye exam: Normal Appearance ENT ENT Exam: Normal Exam Neck Neck Exam: Normal Inspection Chest Chest Inspection: Normal Inspection Respiratory Respiratory Exam: Normal Lung Sounds Bilat Cardiovascular Cardiovascular Exam: Regular Rate and Normal Rhythm Abdominal Exam Abdominal Exam: Normal Inspection, Normal Bowel Sounds and Soft Extremities Extremities Exam: Normal Inspection Back Back Exam: Normal Inspection Neurological Neurological Exam: Alert, Oriented X3 and CN II-XII Intact Psychiatric Psychiatric Exam: Normal Affect and Normal Mood Skin Skin Exam: Warm, Dry, Intact and Normal Color Other Exam Other Exam: left upper extremity: diffuse tenderness left shoulder, worse with PROM of the extremity. No deformity, no redness or joint warmth. DNVI. MDM Differential Diagnosis Differential Diagnosis: Contusion, Open Fracture, Sprain and Other (ACS) COURSE Treatment Treatment: 53 yo AAF w/ prev hx of CAD/ s/p CABG presents with left arm pain. EKG obtained on arrival demonstrated some old TWI's and NS ST segment changes. CXR/ Left shoulder films essentially unremarkable. TNI negative. Aspirin loaded. BMP reviewed. Cre markedly elevated from previous value. IVF bolus given and started on continuous drip. No hx of recent diuretic use. Discussed with hospitalist senior mobile application developer whom agrees to admit for r/o acs as well as todd. Consultation Consultation Comments: Discussed all details with Dr gan whom agrees to admit. ROR Labs Reviewed Laboratory Results Reviewed?: Yes Result Diagrams: 05/04/19 11:23 05/04/19 11:23 Laboratory: WBC 7.2 X10^3/uL (3.6-10.0) 05/04/19 11:23 RBC 4.63 X10^6/uL (3.5-5.4) 05/04/19 11:23 Hgb 12.3 g/dL (12.0-16.0) 05/04/19 11:23 Hct 37.7 % (36.0-47.0) 05/04/19 11:23 MCV 81.5 fL (80.0-100.0) 05/04/19 11:23 MCH 26.5 pg (27.0-34.0) L 05/04/19 11:23 MCHC 32.5 g/dL (33.0-35.0) L 05/04/19 11:23 RDW 15.0 % (11.6-16.5) 05/04/19 11:23 Plt Count 219 X10^3/uL (150.0-450.0) 05/04/19 11:23 MPV 8.9 fL (7.4-11.0) 05/04/19 11:23 Neut % (Auto) 51.2 % (42.0-75.0) 05/04/19 11:23 Lymph % (Auto) 36.3 % (21.0-51.0) 05/04/19 11:23 Navarro % (Auto) 9.5 % (0.0-13.0) 05/04/19 11:23 Eos % (Auto) 2.1 % (0.9-2.9) 05/04/19 11:23 Baso % (Auto) 0.9 % (0.2-1.0) 05/04/19 11:23 Neut # (Auto) 3.7 x10^3/uL (2.2-4.8) 05/04/19 11:23 Lymph # (Auto) 2.6 X10^3/uL (1.3-2.9) 05/04/19 11:23 Navarro # (Auto) 0.7 x10^3/uL (0.3-0.8) 05/04/19 11:23 Eos # (Auto) 0.2 x10^3/uL (0.0-0.2) 05/04/19 11:23 Baso # (Auto) 0.1 X10^3/uL (0.0-0.1) 05/04/19 11:23 Absolute Nucleated RBC 0.1 /100WBC 05/04/19 11:23 Sodium 141 mmol/L (136-145) 05/04/19 11:23 Corrected Sodium TNP 05/04/19 11:23 Potassium 4.2 mmol/L (3.5-5.1) 05/04/19 11:23 Chloride 105 mmol/L (98-107) 05/04/19 11:23 Carbon Dioxide 24.9 mmol/L (21-32) 05/04/19 11:23 BUN 21 mg/dL (7-18) H 05/04/19 11:23 Creatinine 1.53 mg/dL (0.55-1.02) H 05/04/19 11:23 Est GFR (MDRD) Af Amer 46 (>60) L 05/04/19 11:23 Est GFR (MDRD) Non-Af 38 (>60) L 05/04/19 11:23 Glucose 97 mg/dL (65-99) 05/04/19 11:23 Calcium 9.1 mg/dL (8.5-10.1) 05/04/19 11:23 Corrected Calcium TNP 05/04/19 11:23 Total Bilirubin 0.60 mg/dL (0.2-1.0) 05/04/19 11:23 AST 28 Units/L (15-37) 05/04/19 11:23 ALT 29 Units/L (12-78) 05/04/19 11:23 Alkaline Phosphatase 148 Units/L (46-116) H 05/04/19 11:23 Creatine Kinase 207 Units/L (26-192) H 05/04/19 14:30 CK-MB (CK-2) 2.6 ng/mL (0-4.0) 05/04/19 14:30 CK/CKMB % Calc 1.3 % (<4) 05/04/19 14:30 Troponin I < 0.02 ng/mL (0-1.5) 05/04/19 14:30 Total Protein 8.4 g/dL (6.4-8.2) H 05/04/19 11:23 Albumin 3.4 g/dL (3.4-5.0) 05/04/19 11:23 Globulin 5.0 g/dL (2.5-4.5) H 05/04/19 11:23 Albumin/Globulin Ratio 0.7 Ratio (1.1-2.1) L 05/04/19 11:23 XRAY XRAY Interpreted by: Radiologist EKG Rate: 61 Rhythm: NSR Hypertrophy: LAE ST: Nonsp (TWI inferolateral leads, NS IVB ) Opioid Opioid Risk Tool Age (Herb box if 16-45): Yes History of Preadolescent Sexual Abuse: No Total: 1 Total Score Risk Category: Low Risk Copyright: Arjun NORWOOD predicting aberrant behaviors Diagnosis Discharge Problem: Chest pain, Acute kidney injury Instructions Forms: Excuse From Work
[2019-05-04] MEDS ORDERED: ASPIRIN PO ONE (11:38)
[2019-05-04] MEDS ORDERED: ASPIRIN ONE (11:41)
[2019-05-04 11:49] LABS: BLOOD UREA NITROGEN 21 mg/dL (7-18); CALCIUM 9.1 mg/dL (8.5-10.1); CARBON DIOXIDE 24.9 mmol/L (21-32); CHLORIDE 105 mmol/L (98-107); CREATININE 1.53 mg/dL (0.55-1.02); SODIUM 141 mmol/L (136-145); TROPONIN I < 0.02 ng/mL (0-1.5); eGFR NON BLACK RACES 38 (>60)
[2019-05-04 11:53] LABS: ALANINE AMINOTRANSFERASE 29 Units/L (12-78); ALBUMIN 3.4 g/dL (3.4-5.0); ALKALINE PHOSPHATASE 148 Units/L (46-116); ASPARTATE AMINO TRANSFERASE 28 Units/L (15-37); CREATINE KINASE MB 2.9 ng/mL (0-4.0); TOTAL PROTEIN 8.4 g/dL (6.4-8.2)
--- NOTE | 2019-05-04 11:54 | RAD ---
HISTORY: Left arm pain, no injury Study: Three-view left shoulder Comparison: 05/03/2017. Findings: No Fracture or dislocation is seen. Findings deemed suspicious for os acromiale is again seen. The left AC joint and glenohumeral joint are well maintained. Calcification is again seen involving the region of the distal rotator cuff tendon. This may represent calcific tendinitis. The visualized left ribs are intact. IMPRESSION: No fracture or dislocation is seen. 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 Continued evidence of calcific tendinitis of the distal rotator cuff tendon. Reported By:
[2019-05-04] MEDS ORDERED: NITROSTAT SL PRN (14:17)
[2019-05-04] MEDS ORDERED: NS 1000 ML 1,000 ML IV ONE (14:17)
[2019-05-04 14:47] VITALS: BMI 41.8
[2019-05-04 14:58] LABS: CKMB % 1.3 % (<4); CREATINE KINASE 207 Units/L (26-192); CREATINE KINASE MB 2.6 ng/mL (0-4.0); TROPONIN I < 0.02 ng/mL (0-1.5)
[2019-05-04] MEDS: NS 1000 ML 1,000 ML IV SCH ×2 (16:28→22:47)
[2019-05-04] MEDS: LOVENOX INJ 40 MG SYR SC SCH (16:28)
[2019-05-04 20:36] LABS: CKMB % 1.2 % (<4); CREATINE KINASE 187 Units/L (26-192); CREATINE KINASE MB 2.3 ng/mL (0-4.0); TROPONIN I < 0.02 ng/mL (0-1.5)
[2019-05-04] MEDS: PEPCID TAB 20 MG PO SCH (20:45)
[2019-05-04] MEDS ORDERED: MOTRIN TAB 800 MG PO PRN (22:23)
[2019-05-05 02:45] LABS: CHOL/HDL RATIO 3.6 (0.0-5.0)
[2019-05-05 02:53] LABS: CKMB % 1.1 % (<4); CREATINE KINASE 171 Units/L (26-192); CREATINE KINASE MB 1.9 ng/mL (0-4.0); TROPONIN I < 0.02 ng/mL (0-1.5)
[2019-05-05 02:54] LABS: BLOOD UREA NITROGEN 14 mg/dL (7-18); CALCIUM 8.4 mg/dL (8.5-10.1); CARBON DIOXIDE 25.9 mmol/L (21-32); CHLORIDE 107 mmol/L (98-107); COR NA(FOR HYPERGLY) 142 mmol/L (136-145); CREATININE 0.71 mg/dL (0.55-1.02); SODIUM 140 mmol/L (136-145); eGFR NON BLACK RACES > 60 (>60)
[2019-05-05] MEDS ORDERED: ASPIRIN PO SCH (09:00)
[2019-05-05] MEDS: LOVENOX INJ 40 MG SYR SC SCH (10:04)
[2019-05-05] MEDS: PEPCID TAB 20 MG PO SCH (10:04)
[2019-05-05 12:10] VITALS: BP 146/67
== END 2019-05-05 12:55 | disposition home or self-care (01) ==
LOC: ER 10:33 → MED/SURG 10:33
PROVIDERS: ADMIT Obstetrics & Gynecology Obstetrics; ATTEND Obstetrics & Gynecology Obstetrics
DX: E86.0 Dehydration; I25.10 Atherosclerotic heart disease of native coronary artery without angina pectoris; E11.65 Type 2 diabetes mellitus with hyperglycemia; R94.31 Abnormal electrocardiogram [ECG] [EKG]; M25.512 Pain in left shoulder; M79.602 Pain in left arm; R07.89 Other chest pain; N17.9 Acute kidney failure, unspecified; K21.9 Gastro-esophageal reflux disease without esophagitis; I10 Essential (primary) hypertension
CPT/HCPCS: 36415; 71020; 71046; 73030; 80048; 80053; 80061; 82550; 82553; 84484; 85025; 93005; 94760; 96365; 96372; 99284; A4222; G0378; J1650; J7030